=== PATIENT | female | born 1980 | race Caucasian/White ===

== ENCOUNTER → 2016-05-19 | Outpatient (CLI) | payer OTHER ==
[2016-05-19 07:50] LABS: Basophils # (A) 0.1 k/uL (0-0.2); Basophils % (A) 1 %; CH 31.2; CHCM 32.8; Eosinophils # (A) 0.2 k/uL (0-0.7); Eosinophils % (A) 2 %; HDW 2.27; HGB 14.6 gm/dL (11.4-16.0); Luc # (Auto) 0.35; Luc % (Auto) 4; Lymphocytes # (A) 2.3 k/uL (1.0-4.8); Lymphocytes % (A) 26 %; MCH 31.1 pg (25.0-35.0); MCHC 32.5 g/dL (31.0-37.0); MCV 95.7 fL (80.0-100.0); Mean Platelet Volume 7.3; Monocytes # (A) 0.5 k/uL (0-1.0); Monocytes % (A) 6 %; Neutrophils # (A) 5.6 k/uL (1.3-7.7); Neutrophils % (A) 62 %; RDW 12.5 % (11.5-15.5); WBC 9.2 k/uL (3.8-10.6); WBC (Perox) 9.76
[2016-05-19 07:58] LABS: ALT 42 U/L (9-52); AST 28 U/L (14-36); Non-African American GFR(MDRD) >60 (>60 ml/min/1.73 sqM)
== END ==
LOC: LABWHC1 07:17
DX: M35.1 Other overlap syndromes (principal); L02.221 Furuncle of abdominal wall; L30.9 Dermatitis, unspecified
CPT/HCPCS: 36415; 82565; 84450; 84460; 85025

== ENCOUNTER → 2016-10-15 | Outpatient (CLI) | payer OTHER ==
--- NOTE | 2016-10-15 10:40 | MR ---
EXAMINATION TYPE: MR ankle LT wo con DATE OF EXAM: 10/15/2016 COMPARISON: NONE HISTORY: Left ankle pain per order. Chronic pain, limited movement, clicking and locking sensation pe r patient. Standard multiplanar, multisequence MRI departmental protocol Multiplanar, multisequence images of the left ankle were acquired. FINDINGS: Distal Achilles tendon is intact and felt within normal limits. Trace curvilinear fluid is seen anterior to it near attachment. Plantar fascia is intact and felt unremarkable. The peroneal tendons along posterior lateral aspect of the ankle are intact. No abnormal signal or te ar is evident. There is somewhat low lying PB muscle belly seen up to level of lateral malleolus. The peroneus tendons are in close proximity up to level of the mid calcaneus with poor separation. The flexor tendons along posterior medial aspect of ankle are intact. Some increased signal surrounds the PT tendon on axial image 15 at level of mid talus. Extensor tendons anteriorly are intact. There is subcutaneous edema anteriorly over level of distal tibia and laterally seen. No worrisome we ll-formed fluid collection is present. Normal sinus tarsi fat is seen. There are small to moderate-si zed tibiotalar joint effusion extending anteriorly and posteriorly. Anterior tibiofibular and the anterior talofibular ligaments are intact. Bone marrow signal intensity is maintained. IMPRESSION: 1. No discrete ligamentous or tendon tear identified. 2. Low lying PB muscle belly with close approximation of peroneal tendons, this sometimes can cause s ymptoms of pain or impingement at this level. Clinical correlation advised. 3. Possible mild tenosynovitis of distal PT versus physiologic fluid, clinical correlation advised.
== END | disposition home or self-care (01) ==
LOC: RADMRIMAIN 07:11
PROVIDERS: ATTEND Nurse Practitioner Family
DX: M62.89 Other specified disorders of muscle (principal); M25.572 Pain in left ankle and joints of left foot

== ENCOUNTER → 2017-02-25 | Outpatient (CLI) | payer OTHER ==
--- NOTE | 2017-02-26 19:25 | MR ---
EXAMINATION TYPE: MR hip RT wo con DATE OF EXAM: 02/25/2017 COMPARISON: CT abdomen and pelvis January 05, 2016 HISTORY: Right Hip Pain Standard multiplanar, multisequence MRI departmental protocol Multiplanar, multisequence images of the pelvis focus and right hip are acquired. FINDINGS: There is redemonstration of moderate axial joint space loss in both hips somewhat pronounce d for patient's age. There is small left hip joint effusion. There is asymmetric more prominent moder ate sized right hip joint effusion most prominent around the femoral neck. Focus of T2 hyperintensity immediately inferior right femoral neck on coronal image 10 is confirmed on coronal image 13 series 801 suggestive of bone marrow edema. No significant spurring is seen. No subchondral cystic change is noted. Femoral head shapes are maintained. Labrum appears intact given limitations of nonarthrogram study. There is increased fluid signal over greater trochanters bilaterally more prominent in the proximal right femur seen best coronal image 13 . No suspicious edema seen at level of lesser trochanters bilaterally. Muscle bulk in the bilateral thighs is symmetric and felt within normal limits. There is no suspiciou s groin adenopathy. There is no suspicious bowel or fat containing inguinal hernias. There is small to moderate amount of free fluid in pelvic cul-de-sac. Both ovaries are seen and spenser l in size with scattered peripheral follicles. Visualized portion of uterus and bladder is unremarkab le. Visualized bowel shows no suspicious dilatation. Remainder of pelvis is unremarkable. IMPRESSION: Moderate asymmetric right-sided greater trochanteric bursitis. Incidental mild left-sided greater tro chanteric bursitis. Asymmetric small to moderate-sized right hip joint effusion. Focus of bone marrow edema inferior medial right femoral neck level in right hip. Fairly moderate axial joint space loss in both hips is noted quite pronounced for patient's age.
== END | disposition home or self-care (01) ==
LOC: RADMRIMAIN 06:35
PROVIDERS: ATTEND Family Medicine
DX: M70.61 Trochanteric bursitis, right hip (principal); R93.7 Abnormal findings on diagnostic imaging of other parts of musculoskeletal system; M25.852 Other specified joint disorders, left hip; M25.851 Other specified joint disorders, right hip

== ENCOUNTER → 2017-04-22 | Outpatient (CLI) | payer OTHER ==
--- NOTE | 2017-04-22 17:40 | NM ---
EXAMINATION TYPE: NM bone/joint limited DATE OF EXAM: 04/22/2017 COMPARISON: Correlation MRI pelvis 02/25/2017 HISTORY: 36-year-old female right hip pain for 3 months TECHNIQUE: After the intravenous administration of 25.2 mCi Tc 99m MDP. Images acquired 3.5 hours p ost injection. Imaging was centered on the pelvis in multiple projections. FINDINGS: No asymmetric tracer uptake is noted at either hip. No abnormal accumulation is seen in the pelvis. IMPRESSION: No significant tracer asymmetry or abnormal accumulation seen in the pelvis or hips.
== END | disposition home or self-care (01) ==
LOC: RADNMMAIN 10:33
PROVIDERS: ATTEND Orthopaedic Surgery
DX: M70.61 Trochanteric bursitis, right hip (principal); M25.551 Pain in right hip; M25.531 Pain in right wrist; M25.451 Effusion, right hip; S66.911D Strain of unspecified muscle, fascia and tendon at wrist and hand level, right hand, subsequent encounter
CPT/HCPCS: 78300; A9503

== ENCOUNTER → 2017-05-17 | Outpatient (CLI) | payer OTHER ==
[2017-05-17 10:53] LABS: HCT 39.5 % (34.0-46.0); HGB 13.2 gm/dL (11.4-16.0); MCHC 33.5 g/dL (31.0-37.0); MCV 89.5 fL (80.0-100.0); Mean Platelet Volume 6.9; Platelet Count 315 k/uL (150-450); RBC 4.42 m/uL (3.80-5.40); RDW 12.9 % (11.5-15.5); WBC 8.9 k/uL (3.8-10.6)
[2017-05-17 11:09] LABS: Albumin 3.9 g/dL (3.5-5.0); Calcium 9.2 mg/dL (8.4-10.2); Potassium 4.2 mmol/L (3.5-5.1); Total Bilirubin 0.2 mg/dL (0.2-1.3); Total Protein 7.1 g/dL (6.3-8.2)
== END ==
LOC: LABWHC1 10:24
PROVIDERS: ATTEND Nurse Practitioner Adult Health
DX: R06.02 Shortness of breath (principal); R60.0 Localized edema; R07.9 Chest pain, unspecified
CPT/HCPCS: 36415; 80053; 83880; 84443; 85027

== ENCOUNTER → 2017-08-08 | Outpatient (CLI) | payer OTHER ==
--- NOTE | 2017-08-09 00:07 | MR ---
EXAMINATION TYPE: MR elbow RT wo con DATE OF EXAM: 08/08/2017 COMPARISON: NONE HISTORY: Right elbow pain Standard multiplanar, multisequence MRI departmental protocol Multiplanar, multisequence images of the right elbow were acquired. FINDINGS: The biceps tendon is intact. Brachialis tendon appears intact. There is subcutaneous edema over the posterior elbow and the proximal ulna. I see no bony destructive process. There is no eviden ce of a fracture. There is no sign of a soft tissue mass. Triceps tendon is intact. The joint spaces are fairly well-maintained. I see no focal bone destruction. There is minute elbow joint effusion. Th e collateral ligaments appear intact. IMPRESSION: Subcutaneous edema over the proximal posterior forearm. No fracture. No evidence of ligament or tendo n tear. Minute elbow joint effusion consistent with mild synovitis.
== END | disposition home or self-care (01) ==
LOC: RADMRIMAIN 16:20
PROVIDERS: ATTEND Nurse Practitioner Family
DX: M25.421 Effusion, right elbow (principal); R60.0 Localized edema

== ENCOUNTER → 2017-09-03 | Outpatient (CLI) | payer OTHER ==
[2017-09-03 07:33] LABS: Basophils # (A) 0.1 k/uL (0-0.2); Basophils % (A) 1 %; Eosinophils # (A) 0.2 k/uL (0-0.7); Eosinophils % (A) 2 %; HCT 40.9 % (34.0-46.0); HGB 13.4 gm/dL (11.4-16.0); Lymphocytes % (A) 25 %; MCH 29.3 pg (25.0-35.0); MCHC 32.7 g/dL (31.0-37.0); MCV 89.7 fL (80.0-100.0); Mean Platelet Volume 6.9; Monocytes # (A) 0.7 k/uL (0-1.0); Monocytes % (A) 9 %; Neutrophils # (A) 4.9 k/uL (1.3-7.7); Neutrophils % (A) 61 %; Platelet Count 299 k/uL (150-450); RBC 4.57 m/uL (3.80-5.40); RDW 12.9 % (11.5-15.5); WBC 8.1 k/uL (3.8-10.6)
[2017-09-03 07:50] LABS: ALT 38 U/L (9-52); AST 27 U/L (14-36); Albumin 3.9 g/dL (3.5-5.0); Alkaline Phosphatase 77 U/L (38-126); Anion Gap 12 mmol/L; Blood Urea Nitrogen 15 mg/dL (7-17); Calcium 9.1 mg/dL (8.4-10.2); Carbon Dioxide 24 mmol/L (22-30); Chloride 103 mmol/L (98-107); Glucose 109 mg/dL (74-99); Potassium 4.8 mmol/L (3.5-5.1); Sodium 139 mmol/L (137-145); Total Bilirubin 0.3 mg/dL (0.2-1.3); Total Protein 6.7 g/dL (6.3-8.2)
[2017-09-03 11:59] LABS: Hemoglobin A1C 5.5 % (4.0-6.0)
--- NOTE | 2017-09-03 23:29 | MR ---
EXAMINATION TYPE: MR hip LT wo con DATE OF EXAM: 09/03/2017 COMPARISON: NONE HISTORY: Left hip pain, Bursitis of other bursa hip Standard multiplanar, multisequence MRI departmental protocol Multiplanar, multisequence images of the left hip were acquired. FINDINGS: Bony pelvis appears intact. Sacroiliac joints appear normal. There is no evidence of a pelv ic mass. There is no free fluid in the pelvis. Proximal left femur and hip joint appear intact. There is no significant joint fluid. I see no bony d estructive process. Hip joint spaces are fairly normal. I see no evidence of a fracture. There is no evidence of avascular necrosis. IMPRESSION: Negative MR scan of the left hip. No evidence of avascular necrosis. No fluid or edema seen to sugges t bursitis.
== END | disposition home or self-care (01) ==
LOC: RADMRIMAIN 06:37
PROVIDERS: ATTEND Nurse Practitioner Family
DX: M25.552 Pain in left hip (principal); M70.72 Other bursitis of hip, left hip; E78.00 Pure hypercholesterolemia, unspecified; F31.70 Bipolar disorder, currently in remission, most recent episode unspecified; R74.8 Abnormal levels of other serum enzymes
CPT/HCPCS: 36415; 80053; 83036; 84443; 85025

== ENCOUNTER → 2022-05-30 | Outpatient (CLI) | payer OTHER ==
--- NOTE | 2022-05-31 19:24 | MM ---
Reason for Exam: Screening (asymptomatic). Last mammogram was performed 7 year(s) and 3 month(s) ago. Patient History: Menarche at age 11. First Full-Term at age 17. Patient has history of breast feeding. Patient used Hormonal Contraceptives for 4 years. Risk Values: Arabella 5 year model risk: 0.5%. NCI Lifetime model risk: 7.2%. Prior Study Comparison: 03/07/2015 Bilateral Screening Mammogram, [facility]. Tissue Density: The breast tissue is almost entirely fat. Findings: Analyzed By CAD. Interval weight gain a increase in overall breast size. Chronic nodularity posterior lateral right breast. There is no suspicious group of microcalcifications or new suspicious mass in either breast. Overall Assessment: Benign, BI-RAD 2 Management: Screening Mammogram of both breasts in 1 year. 1. Further clinical management of left axillary pain. Patient should continue monthly self breast exams. 2. A clinical breast exam by your physician is recommended on an annual basis. 3. This exam should not preclude additional follow-up of suspicious palpable abnormalities. Electronically signed and approved by: Ashwin Castillo M.D. Radiologist
== END | disposition home or self-care (01) ==
LOC: RADMAMWWP 16:50
PROVIDERS: ATTEND Family Medicine
DX: Z12.31 Encounter for screening mammogram for malignant neoplasm of breast (principal)
CPT/HCPCS: 77067

== ENCOUNTER → 2022-07-04 | Outpatient (CLI) | payer OTHER ==
--- NOTE | 2022-07-05 10:20 | US ---
EXAMINATION TYPE: US mass soft tissue chest/back DATE OF EXAM: 07/04/2022 COMPARISON: NONE CLINICAL INDICATION: Female, 41 years old with history of R22.2 Nodule of chest wall; Patient states she has felt this nodule x 1 month. Area is within the left lateral chest wall inferior to the level of the axilla. Technique and findings: [employer] notes: Scanned left lateral chest wall. No abnormalities seen at this time by ultrasound. IMPRESSION: No discrete sonographic abnormality along the patient's palpable site left lateral chest wall just below the axilla. Clinical follow-up for any suspicious palpable abnormality.
== END | disposition home or self-care (01) ==
LOC: RADUSWWP 12:44
PROVIDERS: ATTEND Family Medicine
DX: R22.2 Localized swelling, mass and lump, trunk (principal)

== ENCOUNTER → 2024-04-06 | Outpatient (CLI) | payer OTHER ==
--- NOTE | 2024-04-06 14:57 | XR ---
EXAMINATION TYPE: XR abdomen 1V DATE OF EXAM: 04/06/2024 12:47 PM COMPARISON: 01/05/2016 CLINICAL INDICATION: Female, 43 years old with history of R10.9 UNSPECIFIED ABDOMINAL PAIN, , FINDINGS: Lung bases are clear. Supine imaging limited for assessment of free intraperitoneal air. No dilated small bowel or air-fluid levels. Scattered air and stool seen throughout the colon extending distally into the rectum. Overall mild to moderate stool burden. No suspicious calcifications identified. Multiple pelvic phleboliths. IMPRESSION: 1. Mild to moderate stool burden. 2. No radiographic evidence of bowel obstruction or other acute process. [facility], , 04/06/2024 2:55 PM
[2024-04-06 19:12] LABS: ALT 21 U/L (8-44); AST 24 U/L (13-35); Albumin 4.4 g/dL (3.8-4.9); Albumin/Globulin Ratio 1.57 Ratio (1.60-3.17); Alkaline Phosphatase 76 U/L (41-126); Blood Urea Nitrogen 9.2 mg/dL (9.0-27.0); Calcium 9.4 mg/dL (8.7-10.3); Carbon Dioxide 21.9 mmol/L (21.6-31.8); Chloride 105 mmol/L (96-109); Globulin 2.8 g/dL (1.6-3.3); Glucose 77 mg/dL (70-110); Potassium 4.5 mmol/L (3.5-5.5); Rheumatoid Factor, Qnt <15 IU/mL (0-15); Sodium 138 mmol/L (135-145); Total Bilirubin 0.2 mg/dL (0.3-1.2); Total Protein 7.2 g/dL (6.2-8.2)
[2024-04-06 19:17] LABS: Basophils # (A) 0.13 X 10*3/uL (0.00-0.10); Basophils % (A) 1.4 %; Eosinophils # (A) 0.19 X 10*3/uL (0.04-0.35); Eosinophils % (A) 2.1 %; HGB 14.6 g/dL (12.0-15.0); Lymphocytes # (A) 2.43 X 10*3/uL (0.90-5.00); MCH 29.3 pg (27.0-32.0); MCHC 32.4 g/dL (32.0-37.0); MCV 90.2 FL (80.0-97.0); Mean Platelet Volume 10.3 FL (9.5-12.2); Monocytes # (A) 0.76 X 10*3/uL (0.20-1.00); Monocytes % (A) 8.4 %; NRBC Per 100 WBC 0 X 10*3/uL (0.00-0.01); Neutrophils # (A) 5.46 X 10*3/uL (1.80-7.70); Neutrophils % (A) 60.8 %; Platelet Count 330 X 10*3/uL (140-440); RBC 4.99 X 10*6/uL (4.10-5.20)
[2024-04-06 19:35] LABS: Erythrocyte Sedimentation Rate 15 mm/Hr (0-20)
[2024-04-06 19:39] LABS: Hepatitis C IgG Antibody Nonreactive (Nonreactive)
[2024-04-06 21:09] LABS: Hepatitis A Antibody IgM Nonreactive (Nonreactive); Hepatitis B Core IgM Nonreactive (Nonreactive); Hepatitis B Surface Antigen Nonreactive (Nonreactive)
[2024-04-07 03:07] LABS: Clam IgE <0.10 kU/L; Codfish IgE <0.10 kU/L; Egg White IgE 0.37 kU/L; Peanut IgE <0.10 kU/L; Scallop IgE <0.10 kU/L; Shrimp IgE <0.10 kU/L; Soybean IgE <0.10 kU/L; Walnut IgE (Food) <0.10 kU/L
== END | disposition home or self-care (01) ==
LOC: LABWHC1 12:23
PROVIDERS: ATTEND Internal Medicine Gastroenterology
DX: R10.9 Unspecified abdominal pain (principal)
CPT/HCPCS: 36415; 74018; 80053; 80074; 82785; 85025; 85652; 86003; 86038; 86140; 86431

== ENCOUNTER → 2024-09-09 | Outpatient (CLI) | payer OTHER ==
--- NOTE | 2024-09-09 15:13 | US ---
EXAMINATION TYPE: US abdomen comp/pelvis limited DATE OF EXAM: 09/09/2024 COMPARISON: NONE CLINICAL INDICATION: Female, 44 years old with history of R10.9 UNSPECIFIED ABDOMINAL PAIN; abdominal pain x months TECHNIQUE: Grayscale color Doppler imaging of the abdomen and pelvis. FINDINGS: Limited due to excessive bowel gas and body habitus EXAM MEASUREMENTS: Liver Length: 11.4 cm Gallbladder Wall: 0.27 cm CBD: 0.3 cm Spleen: 7.6 cm Right Kidney: 10.5 x 4.3 x 4.9 cm Left Kidney: 10.2 x 4.3 x 6.5 cm Pancreas: parts seen appear wnl Liver: heterogeneous Gallbladder: wnl CBD: wnl Spleen: appears wnl Right Kidney: appears wnl Left Kidney: appears wnl Upper IVC: appears wnl Abd Aorta: appears wnl Bladder: Not seen due to emptiness and bowel gas IMPRESSION: No distinct abnormality seen. [facility], , 09/09/2024 3:11 PM
== END | disposition home or self-care (01) ==
LOC: RADUSWWP 14:30
PROVIDERS: ATTEND Internal Medicine Gastroenterology
DX: R10.9 Unspecified abdominal pain (principal)
CPT/HCPCS: 76700; 76857

== ENCOUNTER → 2024-09-26 | Outpatient (CLI) | payer OTHER ==
--- NOTE | 2024-09-26 12:22 | MR ---
INDICATION: Patient age:Female; 44 years old; Reason for study: H93.13 TINNITUS, H53.9 VISUAL DISTURBANCES; [facility]. COMPARISON: MRI brain 08/29/2025. TECHNIQUE: Multi planar, multi sequence imaging was performed through the brain. The patient was then given 9 cc of Gadobutrol intravenously and multi planar, T1 fat-saturation images were obtained. FINDINGS: The franklin-white junctions, ventricular system, basal cisterns appear unremarkable. Age-appropriate cer ebral parenchymal volume. Diffusion-weighted imaging shows no evidence of restricted diffusion to sug gest acute/subacute infarct. Intracranial arterial flow voids are maintained. Midline structures show no abnormality. No FLAIR signal abnormalities. The susceptibility weighted images do not reveal any evidence for micro-hemorrhage. After administration of gadolinium, no abnormal enhancement is seen. The bone marrow signal is within normal limits. The paranasal sinuses and globes are unremarkable. IMPRESSION: No evidence of intracranial mass, acute/subacute infarct, or abnormal enhancement. [facility], , 09/26/2024 12:20 PM
== END | disposition home or self-care (01) ==
LOC: RADMRIMAIN 11:07
PROVIDERS: ATTEND Family Medicine
DX: H93.13 Tinnitus, bilateral (principal); H53.9 Unspecified visual disturbance
CPT/HCPCS: 70553; A9585